=== PATIENT | male | born 1960 | race Caucasian/White ===

== ENCOUNTER 2016-10-23 15:36 | Inpatient (IN) | payer OTHER ==
[~2016-10-23] VITALS: Ht 182.9 cm; Wt 81.0 kg
[~2016-10-23 15:36] MED LIST: 1-ME1LIQ PO; ABIL5TAB6 PO; ACET325 PO; ARIP1TAB16 PO; ASPI81TA11 PO; ATOR10 PO; CLON.2 PO; D 101000 PO; DEPA500T3 PO; HYDR25TA35 PO; LEVE250 PO; LEXA20TA PO; METO50CR PO; NUED20CA PO; PERC5TAB12 PO; SILV400T TOP; TAMS0.4C67 PO; TRAZ50TA4 PO; XANA1TAB6 PO
[2016-10-23 16:09] VITALS: RESP 20
[2016-10-23 16:12] VITALS: BP 153/100; PULSE 76; RESP 20; O2SAT 92
[2016-10-23] MEDS ORDERED: SODIUM CHLOR 0.9% 1000 ML INJ 1,000 ML IV SCH ×2 (16:12→19:30)
[2016-10-23] MEDS ORDERED: SODIUM CHLORIDE 0.9% FLUSH 10 ML FLUSH IV FLUSH PRN ×2 (16:15→19:15)
--- NOTE | 2016-10-23 16:30 | PD ---
HPI Chief Complaint: Abnormal Results Time Seen by Provider: 16:09 Travel History International Travel<30 days: No Contact w/Intl Traveler<30days: No Traveled to known affect area: No History of Present Illness HPI Patient is a 56-year-old male who is brought to the emergency room by [facility] for abnormal labs. Patient is alert to person and time, not place. Patient reports that he is feeling fine, patient with no complaints. It appears that patient's renal function was elevated be some labs from today, BUN/creatinine: 65/4.3. patients baseline bun/cr 20/1.62 (from 12/22/15) PFSH Past Medical History Arthritis: No Asthma: No Autoimmune Disease: No Anxiety: Yes Depression: Yes Cancer: No Chemotherapy: No Chest Pain: No Congestive Heart Failure: No COPD: Yes Cerebrovascular Accident: Yes (stroke x 2 HEMHORRAGIC) Diminished Hearing: No Endocrine: No GERD: No Genitourinary: Yes (BPH ) Hiatal Hernia: No Hypertension: Yes Immune Disorder: No Implanted Vascular Access Dvce: Yes Kidney Stones: No Musculoskeletal: No Neurologic: Yes Psychiatric: Yes Reproductive: No Respiratory: No Immunizations Current: Yes Migraines: No Myocardial Infarction: Yes (2006) Radiation Therapy: No Renal Failure: No Seizures: Yes Sickle Cell Disease: No Sleep Apnea: Yes Past Surgical History Abdominal Surgery: No AICD: No Arteriovenous Shunt: No Body Medical Devices: 2 pins left thumb Cardiac Surgery: No Ear Surgery: No Endocrine Surgery: No Eye Surgery: No Genitourinary Surgery: No Gynecologic Surgery: No Insulin Pump: No Joint Replacement: No Oral Surgery: No Pacemaker: No Thoracic Surgery: No Other Surgery: Yes (right hand ) Social History Alcohol Use: No (Has used in the past. ) Tobacco Use: Yes (3/4 PPD) Substance Use: No Allergies-Medications (Allergen,Severity, Reaction): Coded Allergies: No Known Allergies (Unverified , 10/23/16) Reported Meds & Prescriptions Reported Meds & Active Scripts Active Reported Zolpidem (Zolpidem Tartrate) 10 Mg Tab 10 Mg PO HS Trazodone (Trazodone HCl) 50 Mg Tab 50 Mg PO HS Tamsulosin (Tamsulosin HCl) 0.4 Mg Cap 0.4 Mg PO HS Pepto-Bismol Liq (Bismuth Subsalicylate) 262 Mg/15 Ml Susp 30 Ml PO Q8HR PRN Do not exceed 8 doses (240 mL or 16 tbsp) in 24 hours. Percocet (Oxycodone-Acetaminophen) 5-325 mg Tab 1 Tab PO Q6H PRN Nuedexta 20-10 mg (Dextromethorphan HBr-Quinidine) 1 Cap Cap 1 Cap PO BID Metoprolol Tartrate 50 Mg Tab 50 Mg PO BID Lexapro (Escitalopram Oxalate) 20 Mg Tab 20 Mg PO DAILY Keppra (Levetiracetam) 750 Mg Tab 750 Mg PO Q12HR Hydralazine HCl 25 Mg Tablet 25 Mg PO TID Depakote DR (Divalproex Sodium) 500 Mg Tabdr 500 Mg PO Q12HR Clonidine (Clonidine HCl) 0.2 Mg Tab 0.2 Mg PO TID Vitamin D3 (Cholecalciferol) 1,000 Unit Tab 1,000 Units PO DAILY Benadryl Allergy (Diphenhydramine HCl) 25 Mg Tablet 50 Mg PO Q6HR PRN Aspir-81 (Aspirin) 81 Mg Tabdr 81 Mg PO DAILY Amlodipine (Amlodipine Besylate) 10 Mg Tab 10 Mg PO DAILY Alprazolam 0.5 Mg Tab 0.5 Mg PO Q6H PRN Abilify (Aripiprazole) 5 Mg Tablet 5 Mg PO DAILY Mapap (Acetaminophen) 325 Mg Tab 325 Mg PO Q4HR PRN Review of Systems General / Constitutional: No: Fever Eyes: No: Visual changes HENT: No: Headaches Cardiovascular: No: Chest Pain or Discomfort Respiratory: No: Shortness of Breath Gastrointestinal: No: Abdominal Pain Genitourinary: No: Dysuria Musculoskeletal: No: Pain Skin: No Rash Neurologic: No: Weakness Psychiatric: No: Depression Endocrine: No: Polydipsia Hematologic/Lymphatic: No: Easy Bruising Physical Exam Narrative GENERAL: nad, nontoxic SKIN: Focused skin assessment warm/dry. HEAD: Atraumatic. Normocephalic. EYES: Pupils equal and round. No scleral icterus. No injection or drainage. ENT: No nasal bleeding or discharge. Mucous membranes pink and moist. NECK: Trachea midline. No JVD. CARDIOVASCULAR: Regular rate and rhythm. No murmur appreciated. RESPIRATORY: No accessory muscle use. Clear to auscultation. Breath sounds equal bilaterally. GASTROINTESTINAL: Abdomen soft, non-tender, nondistended. Hepatic and splenic margins not palpable. MUSCULOSKELETAL: No obvious deformities. No clubbing. No cyanosis. No edema. NEUROLOGICAL: Awake and alert to person/time. No obvious cranial nerve deficits. Motor grossly within normal limits. Normal speech. PSYCHIATRIC: Appropriate mood and affect; insight and judgment normal. Data Data Last Documented VS Vital Signs Date Time Temp Pulse Resp B/P Pulse Ox O2 Delivery O2 Flow Rate FiO2 10/23/16 17:47 67 17 168/102 92 Nasal Cannula 2 Orders Complete Blood Count With Diff (10/23/16 16:12) Comprehensive Metabolic Panel (10/23/16 16:12) Prothrombin Time / Inr (Pt) (10/23/16 16:12) Act Partial Throm Time (Ptt) (10/23/16 16:12) Urinalysis - C+S If Indicated (10/23/16 16:12) Iv Access Insert/Monitor (10/23/16 16:12) Sodium Chlor 0.9% 1000 Ml Inj (Ns 1000 M (10/23/16 16:12) Sodium Chloride 0.9% Flush (Ns Flush) (10/23/16 16:15) Us Kidney/Renal/Bladder (10/23/16 ) Labs Laboratory Tests Test 10/23/16 16:25 White Blood Count 8.7 TH/MM3 Red Blood Count 3.89 MIL/MM3 Hemoglobin 11.9 GM/DL Hematocrit 36.2 % Mean Corpuscular Volume 93.0 FL Mean Corpuscular Hemoglobin 30.6 PG Mean Corpuscular Hemoglobin 32.9 % Concent Red Cell Distribution Width 16.4 % Platelet Count 114 TH/MM3 Mean Platelet Volume 8.4 FL Neutrophils (%) (Auto) 70.7 % Lymphocytes (%) (Auto) 15.2 % Monocytes (%) (Auto) 12.9 % Eosinophils (%) (Auto) 0.8 % Basophils (%) (Auto) 0.4 % Neutrophils # (Auto) 6.2 TH/MM3 Lymphocytes # (Auto) 1.3 TH/MM3 Monocytes # (Auto) 1.1 TH/MM3 Eosinophils # (Auto) 0.1 TH/MM3 Basophils # (Auto) 0.0 TH/MM3 CBC Comment DIFF FINAL Differential Comment Prothrombin Time 12.4 SEC Prothromb Time International 1.1 RATIO Ratio Activated Partial 30.3 SEC Thromboplast Time Urine Color YELLOW Urine Turbidity CLEAR Urine pH 5.0 Urine Specific [place] 1.015 Urine Protein 30 mg/dL Urine Glucose (UA) NEG mg/dL Urine Ketones NEG mg/dL Urine Occult Blood SMALL Urine Nitrite NEG Urine Bilirubin NEG Urine Urobilinogen LESS THAN 2.0 MG/DL Urine Leukocyte Esterase NEG Urine WBC 2 /hpf Urine Squamous Epithelial <1 /hpf Cells Microscopic Urinalysis Comment CULT NOT INDICATED Sodium Level 144 MEQ/L Potassium Level 4.2 MEQ/L Chloride Level 107 MEQ/L Carbon Dioxide Level 27.5 MEQ/L Anion Gap 10 MEQ/L Blood Urea Nitrogen 64 MG/DL Creatinine 3.56 MG/DL Estimat Glomerular Filtration 18 ML/MIN Rate Random Glucose 105 MG/DL Calcium Level 8.7 MG/DL Total Bilirubin 0.4 MG/DL Aspartate Amino Transf 108 U/L (AST/SGOT) Alanine Aminotransferase 46 U/L (ALT/SGPT) Alkaline Phosphatase 62 U/L Total Protein 7.8 GM/DL Albumin 3.4 GM/DL MDM Medical Decision Making Medical Screen Exam Complete: Yes Emergency Medical Condition: Yes Interpretation(s) Vital Signs Date Time Temp Pulse Resp B/P Pulse Ox O2 Delivery O2 Flow Rate FiO2 10/23/16 16:12 76 20 153/100 92 Room Air 10/23/16 16:12 82 76 10/23/16 16:09 20 Differential Diagnosis Differential includes renal failure, electrolyte abnormality, uti Narrative Course Patient is a 56 year old male who presents to the emergency room from [facility] for abnormal lab work. patient had lab work drawn today: BUN/CR 65/4.3, BUN/CR from 12/22/15: 21/1.62 plan to recheck labs and administer IVF CBC & BMP Diagram 10/23/16 16:25 bun/cr: 64/3.56, patient with arf, will require admission case reviewed with dr. carson who accepts pt to service Diagnosis Primary Impression: Renal failure Admitting Information Admitting Physician Requests: Admit Nel Shirley DO Oct 23, 2016 16:30
[2016-10-23] MEDS ORDERED: MAPA325T PO (16:46)
[2016-10-23] MEDS ORDERED: CLON0.2T PO (16:58)
[2016-10-23] MEDS ORDERED: PERC5TAB12 PO (16:58)
[2016-10-23] MEDS ORDERED: ASPI81TA81 PO (16:58)
[2016-10-23] MEDS ORDERED: ALPR0.5T3 PO (16:58)
[2016-10-23] MEDS ORDERED: NUED20CA PO (16:58)
[2016-10-23] MEDS ORDERED: KEPP750T PO (16:58)
[2016-10-23] MEDS ORDERED: DEPA500T PO (16:58)
[2016-10-23] MEDS ORDERED: PEPT262S PO (16:58)
[2016-10-23] MEDS ORDERED: TRAZ50TA12 PO (16:58)
[2016-10-23] MEDS ORDERED: ABIL5TAB7 PO (16:58)
[2016-10-23] MEDS ORDERED: AMLO10TA2 PO (16:58)
[2016-10-23] MEDS ORDERED: LEXA20TA PO (16:58)
[2016-10-23] MEDS ORDERED: ZOLP10TA3 PO (16:58)
[2016-10-23] MEDS ORDERED: METO50TA PO (16:58)
[2016-10-23] MEDS ORDERED: BENA25TA6 PO (16:58)
[2016-10-23] MEDS ORDERED: TAMS0.4C4 PO (16:58)
[2016-10-23] MEDS ORDERED: HYDR-3799 PO (16:58)
[2016-10-23] MEDS ORDERED: VITA100064 PO (16:58)
[2016-10-23 17:19] LABS: AUTOMATED NEUTROPHIL # 6.2 TH/MM3 (1.8-7.7); BASOPHIL % 0.4 % (0.0-2.0); EOSINOPHIL # 0.1 TH/MM3 (0-0.4); EOSINOPHIL % 0.8 % (0.0-4.0); HEMATOCRIT 36.2 % (39.0-51.0); HEMO FLAGS DIFF FINAL; LYMPH % 15.2 % (9.0-44.0); LYMPHOCYTE # 1.3 TH/MM3 (1.0-4.8); MEAN CORPUSCULAR HEMOGLOBIN 30.6 PG (27.0-34.0); MEAN CORPUSCULAR HGB CONC 32.9 % (32.0-36.0); MONO % 12.9 % (0.0-8.0); NEUT % 70.7 % (16.0-70.0); PLATELET COUNT 114 TH/MM3 (150-450); RED BLOOD COUNT 3.89 MIL/MM3 (4.50-5.90); RED CELL DISTRIBUTION WIDTH 16.4 % (11.6-17.2); WHITE BLOOD COUNT 8.7 TH/MM3 (4.0-11.0)
[2016-10-23 17:20] LABS: BLOOD, URINE SMALL (NEG); COMMENT (UR) CULT NOT INDICATED; CULTURE IF INDICATED CULT NOT INDICATED; GLUCOSE,URINE NEG (NEG); KETONE, URINE NEG (NEG); NITRITE,URINE NEG (NEG); SQUAMOUS EPITHELIAL CELL URINE <1 /hpf (0-5); URINE COLOR YELLOW (YELLW/STRAW)
[2016-10-23 17:31] LABS: ANION GAP 10 MEQ/L (5-15); AST (GOT) 108 U/L (15-37); BICARBONATE 27.5 MEQ/L (21.0-32.0); BLOOD UREA NITROGEN 64 MG/DL (7-18); CHLORIDE 107 MEQ/L (98-107); GLOMERULAR FILTRATION RATE 18 ML/MIN (>89); POTASSIUM 4.2 MEQ/L (3.5-5.1); SODIUM (NA) 144 MEQ/L (136-145)
[2016-10-23 17:35] LABS: ALKALINE PHOSPHATASE 62 U/L (45-117); ALT (GPT) 46 U/L (12-78); TOTAL BILIRUBIN ADULT 0.4 MG/DL (0.2-1.0)
[2016-10-23 17:47] VITALS: BP 168/102; PULSE 67; RESP 17; O2SAT 92
[2016-10-23 17:47] LABS: APTT (PATIENT) 30.3 SEC (24.3-30.1); INTERNATIONAL NORMALIZED RATIO 1.1 RATIO; PROTHROMBIN TIME - PATIENT 12.4 SEC (9.8-11.6)
--- NOTE | 2016-10-23 18:35 | RADRPT ---
EXAM DATE/TIME: 10/23/2016 17:44 [place] COMPARISON: No previous studies available for comparison. INDICATIONS : Abnormal lab values. MEDICAL HISTORY : Chronic obstructive pulmonary disease. Hypertension. Benign prostatic hyperplasia, (BPH) Cerebrovascu lar accident. Myocardial infarction. SURGICAL HISTORY : Pins in right thumb. ENCOUNTER: Initial ACUITY: 1 day PAIN SCORE: Nonresponsive. LOCATION: Bilateral flank MEASUREMENTS: RIGHT KIDNEY: 11.0 x 4.0 x 6.0 cm LEFT KIDNEY: 10.1 x 5.4 x 6.9 cm FINDINGS: There is no hydronephrosis. There is a solid mass in the right lower pole kidney measures 4.5 cm in s ize with separate tiny 9 mm cyst. There is a simple cyst in the left kidney measures 3.6 cm at upper pole. No definite stone is identified for technique. The bladder appears distended. CONCLUSION: Solid mass in the right kidney and further characterization with MRI examination with intravenous contrast is recommended. Rosa Pete MD on October 23, 2016 at 18:31 Board Certified Radiologist. This report was verified electronically.
--- NOTE | 2016-10-23 19:13 | HHI.HP ---
[facility]ician Xavier Ahuja MD Admission Diagnosis Acute renal failure Diagnoses: (1) LINDA (acute kidney injury) Diagnosis: Principal (2) Renal mass Diagnosis: Principal (3) Thrombocytopenia Diagnosis: Principal (4) HTN (hypertension) Diagnosis: Principal (5) Seizure disorder Diagnosis: Principal (6) DNR (do not resuscitate) Diagnosis: Principal Travel History International Travel<30 Days: No Contact w/Intl Traveler <30 Da: No Traveled to Known Affected Are: No History of Present Illness This is a 56-year-old DNR male with PMH of Anxiety, Depression, COPD, h/o Hemorrhagic CVA, BPH and Tobacco Abuse who was sent to the ER from [facility] for elevated BUN/Creatinine. Pt currently without complaints. Labs w/ Creatinine 4.3, previously 1.62 on 12/22/15. Currently Creatinine 3.56. K+ normal. U/a negative. Platelets 114, previously 155 on 12/22/15. Renal US w/ solid mass in right kidney, recommendation for MRI w/ contrast. Review of Systems Except as stated in HPI: all other systems reviewed are Neg ROS: 14 point review of systems otherwise negative. Past Family Social History Past Medical History PMH: Anxiety, Depression, COPD, h/o Hemorrhagic CVA, BPH and Tobacco Abuse Past Surgical History PAST SURGICAL HISTORY: Right Hand Surgery Allergies: Coded Allergies: No Known Allergies (Unverified , 10/23/16) Family History PAST FAMILY HISTORY: Reviewed. No h/o DM or CAD Social History PAST SOCIAL HISTORY: Negative for alcohol or drugs. Smokes 3/4ppd. Physical Exam Vital Signs Vital Signs Date Time Temp Pulse Resp B/P Pulse Ox O2 Delivery O2 Flow Rate FiO2 10/23/16 17:47 67 17 168/102 92 Nasal Cannula 2 10/23/16 16:12 76 20 153/100 92 Room Air 10/23/16 16:12 82 76 10/23/16 16:09 20 Physical Exam PE: GENERAL: Middle-aged white male in no acute distress. HEENT: PERRLA, EOMI. No scleral icterus or conjunctival pallor. No lid lag or facial droop. CARDIOVASCULAR: Regular rate and rhythm. No obvious murmurs to auscultation. No chest tenderness to palpation. RESPIRATORY: No obvious rhonchi or wheezing. Clear to auscultation. Breath sounds equal bilaterally. GASTROINTESTINAL: Abdomen soft, non-tender, nondistended. BS normal. MUSCULOSKELETAL: Extremities without clubbing, cyanosis, or edema. No obvious deformities. NEUROLOGICAL: Awake, alert and oriented x2. No focal neurologic deficits. Moving both upper and lower extremities spontaneously. Laboratory Laboratory Tests Test 10/23/16 16:25 White Blood Count 8.7 Red Blood Count 3.89 Hemoglobin 11.9 Hematocrit 36.2 Mean Corpuscular Volume 93.0 Mean Corpuscular Hemoglobin 30.6 Mean Corpuscular Hemoglobin 32.9 Concent Red Cell Distribution Width 16.4 Platelet Count 114 Mean Platelet Volume 8.4 Neutrophils (%) (Auto) 70.7 Lymphocytes (%) (Auto) 15.2 Monocytes (%) (Auto) 12.9 Eosinophils (%) (Auto) 0.8 Basophils (%) (Auto) 0.4 Neutrophils # (Auto) 6.2 Lymphocytes # (Auto) 1.3 Monocytes # (Auto) 1.1 Eosinophils # (Auto) 0.1 Basophils # (Auto) 0.0 CBC Comment DIFF FINAL Differential Comment Prothrombin Time 12.4 Prothromb Time International 1.1 Ratio Activated Partial 30.3 Thromboplast Time Urine Color YELLOW Urine Turbidity CLEAR Urine pH 5.0 Urine Specific [place] 1.015 Urine Protein 30 Urine Glucose (UA) NEG Urine Ketones NEG Urine Occult Blood SMALL Urine Nitrite NEG Urine Bilirubin NEG Urine Urobilinogen LESS THAN 2.0 Urine Leukocyte Esterase NEG Urine WBC 2 Urine Squamous Epithelial <1 Cells Microscopic Urinalysis Comment CULT NOT INDICATED Sodium Level 144 Potassium Level 4.2 Chloride Level 107 Carbon Dioxide Level 27.5 Anion Gap 10 Blood Urea Nitrogen 64 Creatinine 3.56 Estimat Glomerular Filtration 18 Rate Random Glucose 105 Calcium Level 8.7 Total Bilirubin 0.4 Aspartate Amino Transf 108 (AST/SGOT) Alanine Aminotransferase 46 (ALT/SGPT) Alkaline Phosphatase 62 Total Protein 7.8 Albumin 3.4 Result Diagram: 10/23/16 1625 10/23/16 1625 Assessment and Plan Problem List: (1) LINDA (acute kidney injury) ICD Code: N17.9 Status: Acute (2) Renal mass ICD Code: N28.89 Status: Acute (3) Thrombocytopenia ICD Code: D69.6 Status: Acute (4) Seizure disorder ICD Code: G40.909 Status: Acute (5) HTN (hypertension) ICD Code: I10 Status: Acute (6) DNR (do not resuscitate) ICD Code: Z66 Status: Chronic Assessment and Plan A/P: 1. LINDA: Sent to ER from Rehab for abnormal BUN/Creatinine, currently creatinine 3.56, previously 1.62 on 12/22/15. Renal US w/ right renal mass w/ recommendation for MRI w/ contrast, images reviewed by me, however in light of acute renal failure, will avoid contrast. U/a negative for UTI. Consult Nephrology for further eval. 2. Renal Mass: Renal US w/ right renal mass as above, images reviewed by me. MRI Abd/Pelvis ordered, currently pending. 3. Thrombocytopenia: Platelets 114, previously 155 on 12/22/15. No active bleeding at this time. Will monitor, repeat labs in a.m. 4. Seizure Disorder: Stable. Resume home Depakote and Keppra. 5. HTN: BP 150-160's. Resume home Metoprolol, Clonidine and Norvasc. Monitor BP. 6. DNR: Code Status confirmed, DNR in chart. 7. DVT Prophylaxis: Pharmacologic contraindication in light of thrombocytopenia and possible renal cell CA w/ high risk for bleed. 8. Social work for d/c planning as needed. 9. Case discussed w/ day physician at length. Physician Certification 2 Midnight Certification Type: Admission for Inpatient Services Order for Inpatient Services The services are ordered in accordance with Medicare regulations or non- Medicare payer requirements, as applicable. In the case of services not specified as inpatient-only, they are appropriately provided as inpatient services in accordance with the 2-midnight benchmark. Estimated LOS (days): 2 days is the estimated time the patient will need to remain in the hospital, assuming treatment plan goals are met and no additional complications. Post-Hospital Plan: Not yet determined Pati Cuevas MD Oct 23, 2016 19:13
[2016-10-23] MEDS ORDERED: ACETAMINOPHEN 325 MG TAB PO PRN (19:15)
[2016-10-23] MEDS ORDERED: LACTULOSE SYRUP 20 GM/30 ML CUP PO PRN (19:15)
[2016-10-23] MEDS ORDERED: MAGNESIUM HYDROXIDE SUSP 30 ML CUP PO PRN (19:15)
[2016-10-23] MEDS ORDERED: SENNOSIDES 8.6 MG TAB PO PRN (19:15)
[2016-10-23] MEDS ORDERED: ONDANSETRON HCL 4 MG/2 ML VIAL IVP PRN (19:15)
[2016-10-23] MEDS ORDERED: BISACODYL 10 MG SUPP RECTAL PRN (19:15)
[2016-10-23 19:22] VITALS: BP 155/95; PULSE 77; RESP 18; O2SAT 98
[2016-10-23] MEDS ORDERED: MORPHINE SULFATE 8 MG/ML INJ IV PUSH PRN (19:30)
[2016-10-23] MEDS: SODIUM CHLOR 0.9% 1000 ML INJ 1,000 ML IV SCH (19:36)
[2016-10-23 20:00] VITALS: BP 144/91; PULSE 77; RESP 19; TEMP 98.1; O2SAT 93
[2016-10-23] MEDS ORDERED: DEXTROMETHORPHAN HBR QUINIDINE PO SCH (21:00)
[2016-10-23] MEDS: SODIUM CHLORIDE 0.9% FLUSH 10 ML FLUSH IV FLUSH SCH (21:00)
[2016-10-23] MEDS: traZODone HCL 50 MG TAB PO SCH (22:26)
[2016-10-23] MEDS: DIVALPROEX DR 500 MG TABEC PO SCH (22:26)
[2016-10-23] MEDS: METOPROLOL TARTRATE 50 MG TAB PO SCH (22:27)
[2016-10-23] MEDS: ZOLPIDEM TARTRATE 10 MG TAB PO SCH (22:27)
[2016-10-23] MEDS: TAMSULOSIN HCL 0.4 MG CAP PO SCH (22:27)
[2016-10-23] MEDS: DOCUSATE SODIUM 50 MG/SENNA 8.6 MG TAB PO SCH (22:27)
[2016-10-23] MEDS: levETIRAcetam 250 MG TAB PO SCH (23:16)
[2016-10-24] VITALS (7 sets, daily range): BP systolic 112–168; BP diastolic 56–113; PULSE 52–82; RESP 18–20; TEMP 96.7–100; O2SAT 88–96
[2016-10-24] MEDS: ALPRAZolam 0.5 MG TAB PO PRN ×2 (01:14→08:47)
[2016-10-24] MEDS: SODIUM CHLOR 0.9% 1000 ML INJ 1,000 ML IV SCH (05:34)
[2016-10-24 06:26] LABS: AUTOMATED NEUTROPHIL # 4.6 TH/MM3 (1.8-7.7); BASOPHIL % 0.7 % (0.0-2.0); EOSINOPHIL # 0.1 TH/MM3 (0-0.4); HEMATOCRIT 36.3 % (39.0-51.0); HEMO FLAGS DIFF FINAL; LYMPH % 18.9 % (9.0-44.0); LYMPHOCYTE # 1.3 TH/MM3 (1.0-4.8); MEAN CELL VOLUME 92.1 FL (80.0-100.0); MEAN CORPUSCULAR HEMOGLOBIN 30.6 PG (27.0-34.0); MEAN CORPUSCULAR HGB CONC 33.2 % (32.0-36.0); MONO % 13.6 % (0.0-8.0); NEUT % 65.8 % (16.0-70.0); PLATELET COUNT 110 TH/MM3 (150-450); RED BLOOD COUNT 3.94 MIL/MM3 (4.50-5.90); RED CELL DISTRIBUTION WIDTH 16.5 % (11.6-17.2); WHITE BLOOD COUNT 6.9 TH/MM3 (4.0-11.0)
[2016-10-24 06:51] LABS: ANION GAP 6 MEQ/L (5-15); AST (GOT) 67 U/L (15-37); BICARBONATE 26.6 MEQ/L (21.0-32.0); BLOOD UREA NITROGEN 47 MG/DL (7-18); CHLORIDE 113 MEQ/L (98-107); GLOMERULAR FILTRATION RATE 29 ML/MIN (>89); POTASSIUM 4.2 MEQ/L (3.5-5.1); SODIUM (NA) 146 MEQ/L (136-145)
[2016-10-24 06:55] LABS: ALKALINE PHOSPHATASE 58 U/L (45-117); ALT (GPT) 39 U/L (12-78); TOTAL BILIRUBIN ADULT 0.3 MG/DL (0.2-1.0)
[2016-10-24] MEDS: ESCITALOPRAM OXALATE 20 MG TAB PO SCH (08:46)
[2016-10-24] MEDS: DIVALPROEX DR 500 MG TABEC PO SCH ×2 (08:46→20:51)
[2016-10-24] MEDS: levETIRAcetam 250 MG TAB PO SCH (08:46)
[2016-10-24] MEDS: DOCUSATE SODIUM 50 MG/SENNA 8.6 MG TAB PO SCH ×2 (08:46→20:51)
[2016-10-24] MEDS: cloNIDine HCL 0.2 MG TAB PO SCH ×3 (08:46→16:58)
[2016-10-24] MEDS: ARIPiprazole 5 MG TAB PO SCH (08:46)
[2016-10-24] MEDS: hydrALAZINE HCL 25 MG TAB PO SCH ×3 (08:46→16:58)
[2016-10-24] MEDS: SODIUM CHLORIDE 0.9% FLUSH 10 ML FLUSH IV FLUSH SCH ×2 (08:47→20:48)
[2016-10-24] MEDS: METOPROLOL TARTRATE 50 MG TAB PO SCH ×2 (08:47→20:50)
--- NOTE | 2016-10-24 12:27 | HHI.PR ---
Subjective Remarks awake, drowsy ? baseline states he uses a cane oriente d to person and place, dysarthric ff commands Objective Vitals Vital Signs Date Time Temp Pulse Resp B/P Pulse Ox O2 Delivery O2 Flow Rate FiO2 10/24/16 12:00 97.5 78 18 141/91 96 10/24/16 09:30 100.0 82 18 112/56 88 10/24/16 08:00 97.3 52 18 159/113 91 10/24/16 00:00 97.9 81 20 134/91 92 10/23/16 20:00 98.1 77 19 144/91 93 10/23/16 19:22 77 18 155/95 98 Nasal Cannula 2 10/23/16 17:47 67 17 168/102 92 Nasal Cannula 2 10/23/16 16:12 76 20 153/100 92 Room Air 10/23/16 16:12 82 76 10/23/16 16:09 20 I/O 10/23/16 10/23/16 10/23/16 10/24/16 10/24/16 10/24/16 07:00 15:00 23:00 07:00 15:00 23:00 Intake Total 333 ml 908 ml Output Total 0 ml Balance 333 ml 908 ml Intake Oral 240 ml IV Total 333 ml 668 ml Output Urine Total 0 ml Result Diagram: 10/24/16 0601 10/24/16 0601 Imaging Last Impressions Renal Ultrasound 10/23/16 0000 Signed Impressions: Service Date/Time: Sunday, October 23, 2016 17:44 - CONCLUSION: Solid mass in the right kidney and further characterization with MRI examination with intravenous contrast is recommended. Rosa Pete MD Objective Remarks drowsy, stated his name, ff commands anicteric mild facial asymmetry, weak gag reflex no nuchal rigdiity lungs- no rales or wheezes regular rhythm abdomen soft, nontender extremities no edema left sided hemiplegia A/P Problem List: (1) LINDA (acute kidney injury) ICD Code: N17.9 Status: Acute (2) Renal mass ICD Code: N28.89 Status: Acute (3) Thrombocytopenia ICD Code: D69.6 Status: Acute (4) Seizure disorder ICD Code: G40.909 Status: Acute (5) HTN (hypertension) ICD Code: I10 Status: Acute (6) DNR (do not resuscitate) ICD Code: Z66 Status: Chronic Assessment and Plan 56 years old male- hisory of CVA with left hemiplegia, [facility] resident sent to ER 1. LINDA: with underlying chronic renal insufficiency=previously 1.62 on . likely acute from poor po intake right renal mass w/ recommendation for MRI w/ contrast however in light of acute renal failure, will avoid contrast. U/a negative for UTI. Hypernatremia change IVF to 1/2 NS- same rated creatinine trending down with IV hydration Consult Nephrology for further eval. Poor po intake - contributing factor CMP in am 2. Renal Mass: Renal US w/ right renal mass as above, images reviewed by me. MRI Abd/Pelvis ordered, currently pending. 3. Thrombocytopenia: Platelets 114, previously 155 on 12/22/15. No active bleeding at this time. Will monitor, 4. Seizure Disorder: S/P CVA left hemiplegia + dysarthria PT/OT/Speech therapy consult. continue on Depakote and Keppra. 5. HTN: BP 150-160's. Resume home Metoprolol, Clonidine and Norvasc. Monitor BP. 6. DNR: Code Status confirmed, DNR in chart. 7. DVT Prophylaxis: Pharmacologic contraindication in light of thrombocytopenia and possible renal cell CA w/ high risk for bleed. 8. Social work for d/c planning as needed. NUtrition consult- calorie count- ? PEG candidate. Speech therapy consulted Srinath/Ana Hayward MD Oct 24, 2016 12:27
[2016-10-24] MEDS: DEXT 5%-NACL 0.45% 1000 ML INJ 1,000 ML IV SCH ×2 (13:08→20:59)
--- NOTE | 2016-10-24 14:16 | PD.CONS ---
HPI Service Nephrology Consult Requested By Dr. ACEVES Reason for Consult Renal insufficiency Primary Care Physician Xavier Ahuja MD History of Present Illness Patient is a 56-year-old white male with history of chronic kidney disease creatinine 1.6, previous CVA, left sided weakness, who was found to have a creatinine of 4.3 in the assisted and subsequently creatinine was 3.5 and currently at 2.3 after hydration patient is tired and lethargic he was found to have a right renal mass which is solid in appearance. Review of Systems Constitutional: COMPLAINS OF: Fatigue Past Family Social History Allergies: Coded Allergies: No Known Allergies (Unverified , 10/23/16) Past Medical History CVA Hypertension Chronic kidney disease Dehydration Left weakness Past Surgical History Right hand Reported Medications Reported Meds & Active Scripts Active Reported Zolpidem (Zolpidem Tartrate) 10 Mg Tab 10 Mg PO HS Trazodone (Trazodone HCl) 50 Mg Tab 50 Mg PO HS Tamsulosin (Tamsulosin HCl) 0.4 Mg Cap 0.4 Mg PO HS Pepto-Bismol Liq (Bismuth Subsalicylate) 262 Mg/15 Ml Susp 30 Ml PO Q8HR PRN Do not exceed 8 doses (240 mL or 16 tbsp) in 24 hours. Percocet (Oxycodone-Acetaminophen) 5-325 mg Tab 1 Tab PO Q6H PRN Nuedexta 20-10 mg (Dextromethorphan HBr-Quinidine) 1 Cap Cap 1 Cap PO BID Metoprolol Tartrate 50 Mg Tab 50 Mg PO BID Lexapro (Escitalopram Oxalate) 20 Mg Tab 20 Mg PO DAILY Keppra (Levetiracetam) 750 Mg Tab 750 Mg PO Q12HR Hydralazine HCl 25 Mg Tablet 25 Mg PO TID Depakote DR (Divalproex Sodium) 500 Mg Tabdr 500 Mg PO Q12HR Clonidine (Clonidine HCl) 0.2 Mg Tab 0.2 Mg PO TID Vitamin D3 (Cholecalciferol) 1,000 Unit Tab 1,000 Units PO DAILY Benadryl Allergy (Diphenhydramine HCl) 25 Mg Tablet 50 Mg PO Q6HR PRN Aspir-81 (Aspirin) 81 Mg Tabdr 81 Mg PO DAILY Amlodipine (Amlodipine Besylate) 10 Mg Tab 10 Mg PO DAILY Alprazolam 0.5 Mg Tab 0.5 Mg PO Q6H PRN Abilify (Aripiprazole) 5 Mg Tablet 5 Mg PO DAILY Mapap (Acetaminophen) 325 Mg Tab 325 Mg PO Q4HR PRN Active Ordered Medications Current Medications Medications (Trade) Dose Ordered Sig/Aroldo Route Start Time Stop Time Status Last Admin (NS Flush) 2 ml UNSCH PRN IV FLUSH 10/23/16 19:15 (NS Flush) 2 ml BID IV FLUSH 10/23/16 21:00 (Zofran Inj) 4 mg Q6H PRN IVP 10/23/16 19:15 (Tylenol) 650 mg Q6H PRN PO 10/23/16 19:15 (Volga 5-325 Mg) 1 tab Q4H PRN PO 10/23/16 19:15 (Morphine Inj) 2 mg Q3H PRN IV PUSH 10/23/16 19:30 (Carolina-Colace) 1 tab BID PO 10/23/16 21:00 10/24/16 08:46 (Milk Of Magnesia Liq) 30 ml Q12H PRN PO 10/23/16 19:15 (Senokot) 17.2 mg Q12H PRN PO 10/23/16 19:15 (Dulcolax Supp) 10 mg DAILY PRN RECTAL 10/23/16 19:15 (Lactulose Liq) 30 ml DAILY PRN PO 10/23/16 19:15 (Xanax) 0.5 mg Q6H PRN PO 10/23/16 19:15 10/24/16 08:47 (Norvasc) 10 mg DAILY PO 10/24/16 09:00 10/24/16 08:46 (Abilify) 5 mg DAILY PO 10/24/16 09:00 10/24/16 08:46 (Catapres) 0.2 mg TID PO 10/24/16 09:00 10/24/16 11:51 (Depakote Dr) 500 mg Q12HR PO 10/23/16 21:00 10/24/16 08:46 (Lexapro) 20 mg DAILY PO 10/24/16 09:00 10/24/16 08:46 (Apresoline) 25 mg TID PO 10/24/16 09:00 10/24/16 11:51 (Keppra) 750 mg Q12HR PO 10/23/16 21:00 10/24/16 08:46 (Lopressor) 50 mg BID PO 10/23/16 21:00 10/24/16 08:47 (Flomax) 0.4 mg HS PO 10/23/16 21:00 10/23/16 22:27 (Desyrel) 50 mg HS PO 10/23/16 21:00 10/23/16 22:26 (Ambien) 10 mg HS PO 10/23/16 21:00 10/23/16 22:27 Patient Own Medication PT OWN MED: (Dextromethorphan HBr-Quinid... BID PO 10/23/16 21:00 Hold (D5W-1/2 NS 1000 ml Inj) 1,000 ml @ 100 mls/hr Q10H IV 10/24/16 12:30 10/24/16 13:08 Family History Noncontributory Social History Used to smoke and drink Physical Exam Vital Signs Vital Signs Date Time Temp Pulse Resp B/P Pulse Ox O2 Delivery O2 Flow Rate FiO2 10/24/16 12:00 97.5 78 18 141/91 96 10/24/16 09:30 100.0 82 18 112/56 88 10/24/16 08:00 97.3 52 18 159/113 91 10/24/16 00:00 97.9 81 20 134/91 92 10/23/16 20:00 98.1 77 19 144/91 93 10/23/16 19:22 77 18 155/95 98 Nasal Cannula 2 10/23/16 17:47 67 17 168/102 92 Nasal Cannula 2 10/23/16 16:12 76 20 153/100 92 Room Air 10/23/16 16:12 82 76 10/23/16 16:09 20 Physical Exam GENERAL: Well-nourished, well-developed patient. SKIN: Warm and dry. HEAD: Normocephalic. EYES: No scleral icterus. No injection or drainage. NECK: Supple, trachea midline. No JVD or lymphadenopathy. CARDIOVASCULAR: Regular rate and rhythm without murmurs, gallops, or rubs. RESPIRATORY: Breath sounds equal bilaterally. No accessory muscle use. GASTROINTESTINAL: Abdomen soft, non-tender, nondistended. EXTREMITIES: No cyanosis, or edema. NEUROLOGICAL: Awake, tired and lethargic Laboratory Laboratory Tests Test 10/23/16 10/24/16 16:25 06:01 White Blood Count 8.7 6.9 Red Blood Count 3.89 3.94 Hemoglobin 11.9 12.1 Hematocrit 36.2 36.3 Mean Corpuscular Volume 93.0 92.1 Mean Corpuscular Hemoglobin 30.6 30.6 Mean Corpuscular Hemoglobin 32.9 33.2 Concent Red Cell Distribution Width 16.4 16.5 Platelet Count 114 110 Mean Platelet Volume 8.4 8.1 Neutrophils (%) (Auto) 70.7 65.8 Lymphocytes (%) (Auto) 15.2 18.9 Monocytes (%) (Auto) 12.9 13.6 Eosinophils (%) (Auto) 0.8 1.0 Basophils (%) (Auto) 0.4 0.7 Neutrophils # (Auto) 6.2 4.6 Lymphocytes # (Auto) 1.3 1.3 Monocytes # (Auto) 1.1 0.9 Eosinophils # (Auto) 0.1 0.1 Basophils # (Auto) 0.0 0.0 CBC Comment DIFF FINAL DIFF FINAL Differential Comment Prothrombin Time 12.4 Prothromb Time International 1.1 Ratio Activated Partial 30.3 Thromboplast Time Urine Color YELLOW Urine Turbidity CLEAR Urine pH 5.0 Urine Specific [place] 1.015 Urine Protein 30 Urine Glucose (UA) NEG Urine Ketones NEG Urine Occult Blood SMALL Urine Nitrite NEG Urine Bilirubin NEG Urine Urobilinogen LESS THAN 2.0 Urine Leukocyte Esterase NEG Urine WBC 2 Urine Squamous Epithelial <1 Cells Microscopic Urinalysis Comment CULT NOT INDICATED Sodium Level 144 146 Potassium Level 4.2 4.2 Chloride Level 107 113 Carbon Dioxide Level 27.5 26.6 Anion Gap 10 6 Blood Urea Nitrogen 64 47 Creatinine 3.56 2.32 Estimat Glomerular Filtration 18 29 Rate Random Glucose 105 80 Calcium Level 8.7 8.5 Total Bilirubin 0.4 0.3 Aspartate Amino Transf 108 67 (AST/SGOT) Alanine Aminotransferase 46 39 (ALT/SGPT) Alkaline Phosphatase 62 58 Total Protein 7.8 7.1 Albumin 3.4 2.9 Result Diagram: 10/24/16 0601 10/24/16 0601 Imaging Last Impressions Renal Ultrasound 10/23/16 0000 Signed Impressions: Service Date/Time: Sunday, October 23, 2016 17:44 - CONCLUSION: Solid mass in the right kidney and further characterization with MRI examination with intravenous contrast is recommended. Rosa Pete MD Assessment and Plan Problem List: (1) LINDA (acute kidney injury) Plan: He is dehydrated prerenal functions continue to improve with hydration continue monitor renal functions I agree with MRI He will need a urological evaluation (2) Neoplasm of right kidney Plan: Appears neoplastic lesion needs urological evaluation (3) HTN (hypertension) Plan: Continue to monitor (4) Thrombocytopenia Plan: Monitor Leonel Joy MD Oct 24, 2016 14:16
[2016-10-24] MEDS: TAMSULOSIN HCL 0.4 MG CAP PO SCH (20:50)
[2016-10-24] MEDS: traZODone HCL 50 MG TAB PO SCH (21:00)
[2016-10-25 04:00] VITALS: BP 164/92; PULSE 56; RESP 20; TEMP 96.7; O2SAT 96
[2016-10-25 07:38] LABS: ALKALINE PHOSPHATASE 51 U/L (45-117); ALT (GPT) 30 U/L (12-78); ANION GAP 7 MEQ/L (5-15); AST (GOT) 37 U/L (15-37); BICARBONATE 27.3 MEQ/L (21.0-32.0); BLOOD UREA NITROGEN 31 MG/DL (7-18); CHLORIDE 113 MEQ/L (98-107); GLOMERULAR FILTRATION RATE 45 ML/MIN (>89); POTASSIUM 3.7 MEQ/L (3.5-5.1); SODIUM (NA) 147 MEQ/L (136-145); TOTAL BILIRUBIN ADULT 0.4 MG/DL (0.2-1.0)
[2016-10-25 08:00] VITALS: BP 142/95; PULSE 59; RESP 18; TEMP 95.5; O2SAT 96
[2016-10-25] MEDS: SODIUM CHLORIDE 0.9% FLUSH 10 ML FLUSH IV FLUSH SCH ×2 (09:00→21:00)
[2016-10-25] MEDS: DEXT 5%-NACL 0.45% 1000 ML INJ 1,000 ML IV SCH ×3 (09:24→22:03)
[2016-10-25] MEDS: METOPROLOL TARTRATE 50 MG TAB PO SCH ×2 (09:25→22:04)
[2016-10-25] MEDS: levETIRAcetam 250 MG TAB PO SCH (09:25)
[2016-10-25] MEDS: hydrALAZINE HCL 25 MG TAB PO SCH ×3 (09:26→17:15)
[2016-10-25] MEDS: DIVALPROEX DR 500 MG TABEC PO SCH (09:26)
[2016-10-25] MEDS: ARIPiprazole 5 MG TAB PO SCH (09:26)
[2016-10-25] MEDS: cloNIDine HCL 0.2 MG TAB PO SCH ×3 (09:26→17:15)
[2016-10-25] MEDS: DOCUSATE SODIUM 50 MG/SENNA 8.6 MG TAB PO SCH ×2 (09:26→22:04)
[2016-10-25] MEDS: ESCITALOPRAM OXALATE 20 MG TAB PO SCH (09:26)
--- NOTE | 2016-10-25 11:01 | HHI.PR ---
Subjective Remarks Sleepy , falling asleep easily. Feels tired. Says she has no appetite and he is not eating. No fever or chills. Denies any pain. No n/v/d/c. Objective Vitals Vital Signs Date Time Temp Pulse Resp B/P Pulse Ox O2 Delivery O2 Flow Rate FiO2 10/25/16 08:00 95.5 59 18 142/95 96 10/25/16 04:00 96.7 56 20 164/92 96 10/24/16 22:00 96.8 54 18 168/98 95 10/24/16 20:00 97.7 53 18 141/85 95 10/24/16 16:00 96.7 64 18 143/88 94 10/24/16 12:00 97.5 78 18 141/91 96 I/O 10/24/16 10/24/16 10/24/16 10/25/16 10/25/16 10/25/16 07:00 15:00 23:00 07:00 15:00 23:00 Intake Total 908 ml 777 ml 753 ml 841 ml Output Total 0 ml Balance 908 ml 777 ml 753 ml 841 ml Intake Oral 240 ml 0 ml IV Total 668 ml 777 ml 753 ml 841 ml Output Urine Total 0 ml # Voids 1 3 # Bowel Movements 0 Result Diagram: 10/24/16 0601 10/25/16 0525 Imaging Last Impressions Renal Ultrasound 10/23/16 0000 Signed Impressions: Service Date/Time: Sunday, October 23, 2016 17:44 - CONCLUSION: Solid mass in the right kidney and further characterization with MRI examination with intravenous contrast is recommended. Rosa Pete MD Objective Remarks GENERAL: 56 yo male, lethargic, sleepy , falling asleep very easily ill appearing in bed. SKIN: Pale. CARDIOVASCULAR: Regular rate and rhythm. RESPIRATORY: No accessory muscle use. Clear to auscultation. Breath sounds equal bilaterally. GASTROINTESTINAL: Abdomen soft, non-tender, nondistended. Hepatic and splenic margins not palpable. MUSCULOSKELETAL: Extremities without clubbing, cyanosis, or edema. No obvious deformities. NEUROLOGICAL: Awake and alert. Falling asleep easily. No obvious cranial nerve deficits. Motor grossly within normal limits. Normal speech. PSYCHIATRIC: Appropriate mood and affect; insight and judgment normal. A/P Problem List: (1) LINDA (acute kidney injury) ICD Code: N17.9 Status: Acute (2) Renal mass ICD Code: N28.89 Status: Acute (3) Thrombocytopenia ICD Code: D69.6 Status: Acute (4) Seizure disorder ICD Code: G40.909 Status: Acute (5) HTN (hypertension) ICD Code: I10 Status: Acute (6) DNR (do not resuscitate) ICD Code: Z66 Status: Chronic Assessment and Plan 56 years old male- hisory of CVA with left hemiplegia, [place] resident sent to ER LINDA: with underlying chronic renal insufficiency=previously 1.62 on 12/22/15. likely acute from poor po intake. Improving. right renal mass w/ recommendation for MRI w/ contrast however in light of acute renal failure, will avoid contrast. U/a negative for UTI. Hypernatremia change IVF to 1/2 NS- same rated creatinine trending down with IV hydration Consult Nephrology for further eval. Poor po intake /decrease appetite - contributing factor. Add megace CMP in am Renal Mass: Renal US w/ right renal mass as above, images reviewed by me. MRI Abd/Pelvis ordered, currently pending. Thrombocytopenia: Platelets 114, previously 155 on 12/22/15. No active bleeding at this time. Will monitor, Seizure Disorder: S/P CVA left hemiplegia + dysarthria PT/OT/Speech therapy consult. continue on Depakote and Keppra. HTN: BP 150-160's. Resume home Metoprolol, Clonidine and Norvasc. Monitor BP. DNR: Code Status confirmed, DNR in chart. DVT Prophylaxis: Pharmacologic contraindication in light of thrombocytopenia and possible renal cell CA w/ high risk for bleed. Case management consulted for d/c planning as needed. Moderate protein calorie malnutrition. Surgical Physician Assistant consult- calorie count- ? PEG candidate, however discussed with the patient he is refusing PEG tube. Check prealbumin. Add megace. Speech therapy consulted for swallow eval as well TEDs/SCDs DC plan pending improvement. Akosua Ozuna MD Oct 25, 2016 11:01
[2016-10-25] MEDS ORDERED: MEGESTROL ACETATE SUSP 400 MG/10 ML CUP PO ONE (11:30)
[2016-10-25 12:00] VITALS: BP 123/89; PULSE 55; RESP 18; TEMP 97.2; O2SAT 94
--- NOTE | 2016-10-25 13:30 | HHI.NPPN ---
Subjective History of Present Illness 56 year old with ARF/CKD/R renal mass Review of Systems General Constitutional: Fatigue Objective Data Data 10/24/16 10/25/16 19:00 07:00 Intake Total 777 ml 1594 ml Balance 777 ml 1594 ml Intake Oral 0 ml IV Total 777 ml 1594 ml # Voids 1 3 # Bowel Movements 0 Vital Signs Date Time Temp Pulse Resp B/P Pulse Ox O2 Delivery O2 Flow Rate FiO2 10/25/16 12:00 97.2 55 18 123/89 94 10/25/16 08:00 95.5 59 18 142/95 96 10/25/16 04:00 96.7 56 20 164/92 96 10/24/16 22:00 96.8 54 18 168/98 95 10/24/16 20:00 97.7 53 18 141/85 95 10/24/16 16:00 96.7 64 18 143/88 94 -: 10/24/16 0601 10/25/16 0525 Physical Exam General Appearance: Well Developed Neck Neck Exam: Neck Supple Pulmonary Resp Exam: Clear Bilaterally, Breath Sounds Equal Cardiology CV Exam: Regular, Good Perfusion Gastrointestinal/Abdomen GI Exam: Soft, Non-Tender Extremeties Extremities Exam: No Edema Assessment/Plan Problem List: (1) LINDA (acute kidney injury) Plan: He improve with hydration continue monitor renal functions I agree with MRI can use contrast as GFR 45 He will need a urological evaluation (2) Neoplasm of right kidney Plan: Appears neoplastic lesion needs urological evaluation (3) HTN (hypertension) Plan: Continue to monitor (4) Thrombocytopenia Plan: Monitor Leonel Joy MD Oct 25, 2016 13:29
[2016-10-25] MEDS ORDERED: GADODIAMIDE PF 287 MG/ML 5 ML VIAL (for RAD MRI) IV ONE (16:26)
[2016-10-25] MEDS ORDERED: GADODIAMIDE PF 287 MG/ML 10 ML VIAL (for RAD MRI) IV ONE (17:24)
--- NOTE | 2016-10-25 17:50 | RADRPT ---
EXAM DATE/TIME: 10/25/2016 16:16 [facility] COMPARISON: US KIDNEY/RENAL/BLADDER, May 08, 2015, 20:09. US KIDNEY/RENAL/BLADDER, October 23, 2016, 17:44. INDICATIONS : Mass. CONTRAST: 8 cc Omniscan (gadodiamide) IV MEDICAL HISTORY : Myocardial infarction. Chronic obstructive pulmonary disease. Benign prostatic hyperplasia, (BPH) HTN . CVA. SURGICAL HISTORY : Right thumb. ENCOUNTER: Subsequent ACUITY: 2 day PAIN SCORE: 5/10 LOCATION: Abdomen. TECHNIQUE: Multiplanar, multisequence magnetic resonance imaging of the abdomen was performed without and with i ntravenous contrast. FINDINGS: LIVER: Normal size with normal signal intensity. No lesion is identified. Portal vein is within normal limi ts. BILIARY: There is no intra- or extra-hepatic biliary ductal dilatation. Gallbladder contains no stones. SPLEEN: Within normal limits. PANCREAS: Within normal limits. ADRENALS: Within normal limits. KIDNEYS: In the lower right kidney there is a heterogeneous mass measuring 3.4 x 4.3 cm.. The mass shows defin ite enhancement along its medial margin. Renal cell carcinoma be the primary consideration. There is a large cyst in the upper anterior aspect of the left kidney. There is no evidence of hydronephrosis. I don't see any renal vein invasion or significant retroperitoneal adenopathy. OTHER: Aorta is nonaneurysmal. There is no lymphadenopathy. CONCLUSION: Heterogeneous mass lower pole right kidney likely renal cell carcinoma. Large cyst in the left kidney . Solid organs are unremarkable. Alberto Augustin MD on October 25, 2016 at 17:46 Board Certified Radiologist. This report was verified electronically.
[2016-10-25 20:17] VITALS: BP 132/84; PULSE 52; RESP 17; TEMP 96.7; O2SAT 96
[2016-10-25] MEDS: TAMSULOSIN HCL 0.4 MG CAP PO SCH (22:04)
[2016-10-26 00:14] VITALS: BP 132/82; PULSE 52; RESP 17; TEMP 97; O2SAT 96
[2016-10-26 07:21] LABS: AUTOMATED NEUTROPHIL # 2.7 TH/MM3 (1.8-7.7); BASOPHIL % 0.5 % (0.0-2.0); EOSINOPHIL # 0.2 TH/MM3 (0-0.4); EOSINOPHIL % 3.6 % (0.0-4.0); HEMO FLAGS DIFF FINAL; LYMPH % 28.4 % (9.0-44.0); LYMPHOCYTE # 1.4 TH/MM3 (1.0-4.8); MEAN CORPUSCULAR HEMOGLOBIN 30.6 PG (27.0-34.0); MEAN CORPUSCULAR HGB CONC 33.6 % (32.0-36.0); MONO % 13.8 % (0.0-8.0); NEUT % 53.7 % (16.0-70.0); PLATELET COUNT 141 TH/MM3 (150-450); RED BLOOD COUNT 3.84 MIL/MM3 (4.50-5.90); RED CELL DISTRIBUTION WIDTH 16.3 % (11.6-17.2)
[2016-10-26 07:45] LABS: BICARBONATE 25.6 MEQ/L (21.0-32.0); POTASSIUM 3.4 MEQ/L (3.5-5.1)
[2016-10-26 08:00] VITALS: BP 190/106; PULSE 66; RESP 20; TEMP 98; O2SAT 99
[2016-10-26] MEDS: METOPROLOL TARTRATE 50 MG TAB PO SCH ×2 (08:06→21:40)
[2016-10-26] MEDS: ARIPiprazole 5 MG TAB PO SCH (08:12)
[2016-10-26] MEDS: cloNIDine HCL 0.2 MG TAB PO SCH ×3 (08:12→18:29)
[2016-10-26] MEDS: DEXT 5%-NACL 0.45% 1000 ML INJ 1,000 ML IV SCH (08:12)
[2016-10-26] MEDS: DIVALPROEX DR 500 MG TABEC PO SCH ×2 (08:12→21:40)
[2016-10-26] MEDS: ESCITALOPRAM OXALATE 20 MG TAB PO SCH (08:13)
[2016-10-26] MEDS: MEGESTROL ACETATE SUSP 400 MG/10 ML CUP PO SCH (08:13)
[2016-10-26] MEDS: SODIUM CHLORIDE 0.9% FLUSH 10 ML FLUSH IV FLUSH SCH ×2 (08:13→20:08)
[2016-10-26] MEDS: levETIRAcetam 250 MG TAB PO SCH ×2 (08:13→21:40)
[2016-10-26] MEDS: DOCUSATE SODIUM 50 MG/SENNA 8.6 MG TAB PO SCH ×2 (08:13→21:40)
[2016-10-26] MEDS: hydrALAZINE HCL 25 MG TAB PO SCH ×3 (08:13→18:30)
--- NOTE | 2016-10-26 11:45 | PD.CONS ---
[facility] Service Urology Consult Requested By Primary Care Physician Xavier Ahuja MD Diagnosis: (1) LINDA (acute kidney injury) ICD Code: N17.9 (2) Renal mass ICD Code: N28.89 (3) Thrombocytopenia ICD Code: D69.6 (4) Seizure disorder ICD Code: G40.909 (5) HTN (hypertension) ICD Code: I10 (6) DNR (do not resuscitate) ICD Code: Z66 History of Present Illness 56-year-old male presents in acute renal failure. Creatinine on admission was 3.5 and is currently down to 1.9 after hydration. Patient missed to having a CVA approximately one year ago affecting his left side. He states that he was living with his mother until her recent . He is currently living in a long -term rehabilitation facility. He currently wears a diaper and voids into his diaper throughout the day and night. He is unable to ambulate due to his stroke affecting his left side. He states he has a long history of hypertension and currently smokes. He does note occasional urinary tract infections. He states he does get the sensation to void, however, at times he is unable to control his voiding. He currently has a condom catheter in place. Renal ultrasound was performed on admission demonstrating a renal mass and follow-up MRI confirmed presence of a 4 x 5 cm right lower pole renal mass concerning for malignancy. Review of Systems ROS Limitations: Clinical Condition Constitutional: DENIES: Diaphoretic episodes Endocrine: DENIES: Heat/cold intolerance Eyes: DENIES: Blurred vision Ears, nose, mouth, throat: DENIES: Tinnitus Respiratory: DENIES: Apneas Cardiovascular: DENIES: Chest pain Gastrointestinal: DENIES: Abdominal pain Musculoskeletal: DENIES: Joint pain Integumentary: DENIES: Abnormal pigmentation Hematologic/lymphatic: DENIES: Bruising Immunologic/allergic: DENIES: Eczema Neurologic: COMPLAINS OF: Abnormal gait Past Family Social History Past Medical History Hypertension Left CVA Right renal mass Acute renal failure History of urinary tract infections Seizure disorder Past Surgical History Denies Allergies: Coded Allergies: No Known Allergies (Unverified , 10/23/16) Family History Mother with throat cancer He denies a family history of prostate cancer Social History Patient drinks socially And presently smoke cigarettes Physical Exam Vital Signs Date Time Temp Pulse Resp B/P Pulse Ox O2 Delivery O2 Flow Rate FiO2 10/26/16 08:00 98.0 66 20 190/106 99 10/26/16 00:14 97.0 52 17 132/82 96 10/25/16 20:17 96.7 52 17 132/84 96 10/25/16 12:00 97.2 55 18 123/89 94 Physical Exam GENERAL: This is a well-nourished, well-developed patient, in no apparent distress. SKIN: No rashes, ecchymoses or lesions. Cool and dry. HEAD: Atraumatic. Normocephalic. No temporal or scalp tenderness. EYES: Pupils equal round and reactive. Extraocular motions intact. No scleral icterus. No injection or drainage. ENT: Nose without bleeding, purulent drainage or septal hematoma. Throat without erythema, tonsillar hypertrophy or exudate. Uvula midline. Airway patent. NECK: Trachea midline. No JVD or lymphadenopathy. Supple, nontender, no meningeal signs. CARDIOVASCULAR: Regular rate and rhythm without murmurs, gallops, or rubs. RESPIRATORY: Clear to auscultation. Breath sounds equal bilaterally. No wheezes , rales, or rhonchi. GASTROINTESTINAL: Abdomen soft, non-tender, nondistended. No hepato-splenomegaly , or palpable masses. No guarding. GENITOURINARY: Normal phallus with testes descended MUSCULOSKELETAL: Extremities without clubbing, cyanosis, or edema. No joint tenderness, effusion, or edema noted. No calf tenderness. Negative Homans sign bilaterally. NEUROLOGICAL: Awake and alert. Cranial nerves II through XII intact. Motor and sensory grossly within normal limits. Five out of 5 muscle strength in all muscle groups. Normal speech. Laboratory Tests Test 10/26/16 05:45 White Blood Count 5.0 Red Blood Count 3.84 Hemoglobin 11.7 Hematocrit 35.0 Mean Corpuscular Volume 91.0 Mean Corpuscular Hemoglobin 30.6 Mean Corpuscular Hemoglobin 33.6 Concent Red Cell Distribution Width 16.3 Platelet Count 141 Mean Platelet Volume 7.9 Neutrophils (%) (Auto) 53.7 Lymphocytes (%) (Auto) 28.4 Monocytes (%) (Auto) 13.8 Eosinophils (%) (Auto) 3.6 Basophils (%) (Auto) 0.5 Neutrophils # (Auto) 2.7 Lymphocytes # (Auto) 1.4 Monocytes # (Auto) 0.7 Eosinophils # (Auto) 0.2 Basophils # (Auto) 0.0 CBC Comment DIFF FINAL Differential Comment Sodium Level 145 Potassium Level 3.4 Chloride Level 111 Carbon Dioxide Level 25.6 Anion Gap 8 Blood Urea Nitrogen 20 Creatinine 1.29 Estimat Glomerular Filtration 58 Rate Random Glucose 92 Calcium Level 8.4 Result Diagram: 10/26/16 0545 10/26/16 0545 Imaging Last Impressions Abdomen MRI 10/25/16 0000 Signed Impressions: Service Date/Time: Tuesday, October 25, 2016 16:16 - CONCLUSION: Heterogeneous mass lower pole right kidney likely renal cell carcinoma. Large cyst in the left kidney. Solid organs are unremarkable. Alberto Augustin MD Renal Ultrasound 10/23/16 0000 Signed Impressions: Service Date/Time: Sunday, October 23, 2016 17:44 - CONCLUSION: Solid mass in the right kidney and further characterization with MRI examination with intravenous contrast is recommended. Rosa Pete MD Assessment and Plan Assessment and Plan 56-year-old male admitted with acute renal failure. Creatinine down to 1.29 and has returned to baseline. 4 x 5 cm right lower pole renal mass concerning for renal cell carcinoma. Continue Flomax. History of thrombocytopenia. Patient in the future will need a right lower pole nephrectomy and will need medical clearance preoperatively. This will be done on an outpatient basis. Thank you for the consult allow me to precipitate in the care of this patient. Brian Jack DO Oct 26, 2016 11:45
[2016-10-26 12:00] VITALS: BP 113/69; PULSE 62; RESP 18; TEMP 96.8; O2SAT 98
--- NOTE | 2016-10-26 13:16 | HHI.PR ---
Subjective Remarks Patient is in bed he is more alert and oriented today. He was able to eat his breakfast today. Appetite is coming back. No nausea, vomiting, diarrhea or constipation. Had a normal bowel movement in the morning. He has no pain at this time. No fever or chills. Objective Vitals Vital Signs Date Time Temp Pulse Resp B/P Pulse Ox O2 Delivery O2 Flow Rate FiO2 10/26/16 12:00 96.8 62 18 113/69 98 10/26/16 08:00 98.0 66 20 190/106 99 10/26/16 00:14 97.0 52 17 132/82 96 10/25/16 20:17 96.7 52 17 132/84 96 I/O 10/25/16 10/25/16 10/25/16 10/26/16 10/26/16 10/26/16 07:00 15:00 23:00 07:00 15:00 23:00 Intake Total 841 ml 1100 ml 1015 ml 1079 ml Output Total 1200 ml 1100 ml Balance 841 ml 1100 ml -185 ml -21 ml Intake Oral 240 ml 480 ml 360 ml IV Total 841 ml 860 ml 535 ml 719 ml Output Urine Total 1200 ml 1000 ml Drainage Total 100 ml # Voids 3 # Bowel Movements 1 1 Result Diagram: 10/26/16 0545 10/26/16 0545 Imaging Last Impressions Abdomen MRI 10/25/16 0000 Signed Impressions: Service Date/Time: Tuesday, October 25, 2016 16:16 - CONCLUSION: Heterogeneous mass lower pole right kidney likely renal cell carcinoma. Large cyst in the left kidney. Solid organs are unremarkable. Alberto Augustin MD Renal Ultrasound 10/23/16 0000 Signed Impressions: Service Date/Time: Sunday, October 23, 2016 17:44 - CONCLUSION: Solid mass in the right kidney and further characterization with MRI examination with intravenous contrast is recommended. Rosa Pete MD Objective Remarks GENERAL: 56 yo male, more alert and oriented today, in bed appears in not acute distress SKIN: Pale. CARDIOVASCULAR: Regular rate and rhythm. RESPIRATORY: No accessory muscle use. Clear to auscultation. Breath sounds equal bilaterally. GASTROINTESTINAL: Abdomen soft, non-tender, nondistended. MUSCULOSKELETAL: Extremities without clubbing, cyanosis, or edema. No obvious deformities. NEUROLOGICAL: Awake and alert. Falling asleep easily. No obvious cranial nerve deficits. Motor grossly within normal limits. Normal speech. PSYCHIATRIC: Appropriate mood and affect; insight and judgment normal. A/P Problem List: (1) LINDA (acute kidney injury) ICD Code: N17.9 Status: Acute (2) Renal mass ICD Code: N28.89 Status: Acute (3) Thrombocytopenia ICD Code: D69.6 Status: Acute (4) Seizure disorder ICD Code: G40.909 Status: Acute (5) HTN (hypertension) ICD Code: I10 Status: Acute (6) DNR (do not resuscitate) ICD Code: Z66 Status: Chronic Assessment and Plan 56 years old male- hisory of CVA with left hemiplegia, [place] resident sent to ER LINDA: with underlying chronic renal insufficiency=previously 1.62 on 12/22/15. likely acute from poor po intake. Improving. right renal mass w/ recommendation for MRI w/ contrast however in light of acute renal failure, will avoid contrast. U/a negative for UTI. Renal Mass: Renal US w/ right renal mass as above, images reviewed by me. MRI Abd/Pelvis with right kidney mass, discussed with the patient An MRI of the abdomen with contrast contrast. Review right upper kidney mass. Urology was consulted. Was seen by Dr. Brian Jack urology. Patient in the future will need a right lower pole nephrectomy and will need medical clearance preoperatively. This will be done on an outpatient basis. Creatinine is back to almost his baseline is 1.29 today. Monitor BMP. Hypernatremia change IVF to 1/2 NS- same rated creatinine trending down with IV hydration Consult Nephrology for further eval. Poor po intake /decrease appetite - contributing factor. Add megace CMP in am Thrombocytopenia: Platelets 114, previously 155 on 12/22/15. No active bleeding at this time. Will monitor, Seizure Disorder: S/P CVA left hemiplegia + dysarthria PT/OT/Speech therapy consult. continue on Depakote and Keppra. HTN: BP 150-160's. Resume home Metoprolol, Clonidine and Norvasc. Monitor BP. DNR: Code Status confirmed, DNR in chart. DVT Prophylaxis: Pharmacologic contraindication in light of thrombocytopenia and possible renal cell CA w/ high risk for bleed. Case management consulted for d/c planning as needed. Moderate protein calorie malnutrition. resolving. He was able to eat all his breakfast today. Greenhouse Assistant consult- calorie count- ? PEG candidate, however discussed with the patient he is refusing PEG tube. Check prealbumin. Continue Megace. Speech therapy consulted for swallow eval as well Physical deconditioning. Consult PT TEDs/SCDs DC plan pending improvement and clearance by consultants. Akosua Ozuna MD Oct 26, 2016 13:16
[2016-10-26] MEDS: ACETAMINOPHEN/HYDROcodone 325 MG/5 MG TAB PO PRN ×2 (13:44→18:30)
[2016-10-26 16:00] VITALS: BP 135/93; PULSE 72; RESP 19; TEMP 97.9; O2SAT 96
--- NOTE | 2016-10-26 16:49 | HHI.NPPN ---
Subjective History of Present Illness 56 year old with ARF/CKD/R renal mass Review of Systems General Constitutional: Fatigue Objective Data Data 10/25/16 10/26/16 19:00 07:00 Intake Total 1100 ml 2094 ml Output Total 2300 ml Balance 1100 ml -206 ml Intake Oral 240 ml 840 ml IV Total 860 ml 1254 ml Output Urine Total 2200 ml Drainage Total 100 ml # Voids 3 # Bowel Movements 1 1 Vital Signs Date Time Temp Pulse Resp B/P Pulse Ox O2 Delivery O2 Flow Rate FiO2 10/26/16 12:00 96.8 62 18 113/69 98 10/26/16 08:00 98.0 66 20 190/106 99 10/26/16 00:14 97.0 52 17 132/82 96 10/25/16 20:17 96.7 52 17 132/84 96 -: 10/26/16 0545 10/26/16 0545 Physical Exam General Appearance: Well Developed Neck Neck Exam: Neck Supple Pulmonary Resp Exam: Clear Bilaterally, Breath Sounds Equal Cardiology CV Exam: Regular, Good Perfusion Gastrointestinal/Abdomen GI Exam: Soft, Non-Tender Extremeties Extremities Exam: No Edema Assessment/Plan Problem List: (1) LINDA (acute kidney injury) Plan: He improve with hydration continue monitor renal functions MRI suggest cancer Urology consulted and will follow as out patient Renal functions improved Nephrology to FU as PRN bases advice to drink water take supplements nepro or Suplena (2) Neoplasm of right kidney Plan: MRI confirmed neoplastic lesion needs surgery once stable (3) HTN (hypertension) Plan: Continue to monitor (4) Thrombocytopenia Plan: Monitor Leonel Joy MD Oct 26, 2016 16:49
[2016-10-26] MEDS: ALPRAZolam 0.5 MG TAB PO PRN (18:29)
[2016-10-26 20:08] VITALS: BP 142/84; PULSE 83; RESP 17; TEMP 99; O2SAT 94
[2016-10-26] MEDS: TAMSULOSIN HCL 0.4 MG CAP PO SCH (21:40)
[2016-10-26] MEDS: ZOLPIDEM TARTRATE 10 MG TAB PO SCH (21:40)
[2016-10-26] MEDS: traZODone HCL 50 MG TAB PO SCH (21:40)
[2016-10-26 23:58] VITALS: BP 140/80; PULSE 80; RESP 18; TEMP 96.8; O2SAT 94
[2016-10-27] MEDS: DEXT 5%-NACL 0.45% 1000 ML INJ 1,000 ML IV SCH ×2 (03:09→10:30)
[2016-10-27 08:00] VITALS: BP 164/96; PULSE 64; RESP 20; TEMP 97.7; O2SAT 98
[2016-10-27] MEDS: SODIUM CHLORIDE 0.9% FLUSH 10 ML FLUSH IV FLUSH SCH (08:44)
[2016-10-27] MEDS: levETIRAcetam 250 MG TAB PO SCH (08:45)
[2016-10-27] MEDS: MEGESTROL ACETATE SUSP 400 MG/10 ML CUP PO SCH (08:45)
[2016-10-27] MEDS: ARIPiprazole 5 MG TAB PO SCH (08:45)
[2016-10-27] MEDS: cloNIDine HCL 0.2 MG TAB PO SCH ×2 (08:46→13:12)
[2016-10-27] MEDS: hydrALAZINE HCL 25 MG TAB PO SCH ×2 (08:46→13:12)
[2016-10-27] MEDS: DIVALPROEX DR 500 MG TABEC PO SCH (08:47)
[2016-10-27] MEDS: METOPROLOL TARTRATE 50 MG TAB PO SCH (08:47)
[2016-10-27] MEDS: ESCITALOPRAM OXALATE 20 MG TAB PO SCH (08:47)
[2016-10-27] MEDS: DOCUSATE SODIUM 50 MG/SENNA 8.6 MG TAB PO SCH (08:47)
[2016-10-27] MEDS ORDERED: MEGE40SU PO (09:08)
[2016-10-27] MEDS ORDERED: SENN1TAB PO (09:08)
[2016-10-27] MEDS ORDERED: ALPR0.5T3 PO (09:08)
[2016-10-27] MEDS ORDERED: PERC5TAB12 PO (09:08)
--- NOTE | 2016-10-27 09:08 | HHI.DS ---
Discharge Summary Admission Date Oct 23, 2016 at 18:03 Discharge Date: Oct 27, 2016 Admitting Diagnosis Acute renal failure (1) LINDA (acute kidney injury) ICD Code: N17.9 Diagnosis: Principal (2) Renal mass ICD Code: N28.89 Diagnosis: Principal (3) Thrombocytopenia ICD Code: D69.6 Diagnosis: Principal (4) Seizure disorder ICD Code: G40.909 Diagnosis: Secondary (5) HTN (hypertension) ICD Code: I10 Diagnosis: Secondary (6) DNR (do not resuscitate) ICD Code: Z66 Diagnosis: Secondary Procedures none Brief History - From Admission This is a 56-year-old DNR male with PMH of Anxiety, Depression, COPD, h/o Hemorrhagic CVA, BPH and Tobacco Abuse who was sent to the ER from [facility] for elevated BUN/Creatinine. Pt currently without complaints. Labs w/ Creatinine 4.3, previously 1.62 on 12/22/15. Currently Creatinine 3.56. K+ normal. U/a negative. Platelets 114, previously 155 on 12/22/15. Renal US w/ solid mass in right kidney, recommendation for MRI w/ contrast. CBC/BMP: 10/26/16 0545 10/26/16 0545 Significant Findings Laboratory Tests Test 10/25/16 10/26/16 05:25 05:45 Sodium Level 147 MEQ/L (136-145) Chloride Level 113 MEQ/L 111 MEQ/L (98-107) (98-107) Blood Urea Nitrogen 31 MG/DL (7-18) 20 MG/DL (7-18) Creatinine 1.62 MG/DL (0.60-1.30) Estimat Glomerular Filtration 45 ML/MIN (>89) 58 ML/MIN (>89) Rate Random Glucose 108 MG/DL (74-106) Calcium Level 8.3 MG/DL 8.4 MG/DL (8.5-10.1) (8.5-10.1) Albumin 2.6 GM/DL (3.4-5.0) Red Blood Count 3.84 MIL/MM3 (4.50-5.90) Hemoglobin 11.7 GM/DL (13.0-17.0) Hematocrit 35.0 % (39.0-51.0) Platelet Count 141 TH/MM3 (150-450) Monocytes (%) (Auto) 13.8 % (0.0-8.0) Potassium Level 3.4 MEQ/L (3.5-5.1) Imaging Last Impressions Abdomen MRI 10/25/16 0000 Signed Impressions: Service Date/Time: Tuesday, October 25, 2016 16:16 - CONCLUSION: Heterogeneous mass lower pole right kidney likely renal cell carcinoma. Large cyst in the left kidney. Solid organs are unremarkable. Alberto Augustin MD Renal Ultrasound 10/23/16 0000 Signed Impressions: Service Date/Time: Sunday, October 23, 2016 17:44 - CONCLUSION: Solid mass in the right kidney and further characterization with MRI examination with intravenous contrast is recommended. Rosa Pete MD PE at Discharge GENERAL: 56 yo male, more alert and oriented today, in bed appears in not acute distress SKIN: Pale. CARDIOVASCULAR: Regular rate and rhythm. RESPIRATORY: No accessory muscle use. Clear to auscultation. Breath sounds equal bilaterally. GASTROINTESTINAL: Abdomen soft, non-tender, nondistended. MUSCULOSKELETAL: Extremities without clubbing, cyanosis, or edema. No obvious deformities. NEUROLOGICAL: Awake and alert. Falling asleep easily. No obvious cranial nerve deficits. Motor grossly within normal limits. Normal speech. PSYCHIATRIC: Appropriate mood and affect; insight and judgment normal. Hospital Course 56 years old male- hisory of CVA with left hemiplegia, [place] resident sent to ER LINDA: with underlying chronic renal insufficiency=previously 1.62 on 12/22/15. likely acute from poor po intake. Improving. right renal mass w/ recommendation for MRI w/ contrast however in light of acute renal failure, will avoid contrast. U/a negative for UTI. Renal Mass: Renal US w/ right renal mass as above, images reviewed by me. MRI Abd/Pelvis with right kidney mass, discussed with the patient An MRI of the abdomen with contrast contrast. Review right upper kidney mass. Urology was consulted. Was seen by Dr. Brian Jack urology. Patient in the future will need a right lower pole nephrectomy and will need medical clearance preoperatively. This will be done on an outpatient basis. Creatinine is back to almost his baseline is 1.29 today. Monitor BMP. Hypernatremia change IVF to 1/2 NS- same rated creatinine trending down with IV hydration Consult Nephrology for further eval. Poor po intake /decrease appetite - contributing factor. Add megace CMP in am Thrombocytopenia: Platelets 114, previously 155 on 12/22/15. No active bleeding at this time. Will monitor, Seizure Disorder: S/P CVA left hemiplegia + dysarthria PT/OT/Speech therapy consult. continue on Depakote and Keppra. HTN: BP 150-160's. Resume home Metoprolol, Clonidine and Norvasc. Monitor BP. DNR: Code Status confirmed, DNR in chart. DVT Prophylaxis: Pharmacologic contraindication in light of thrombocytopenia and possible renal cell CA w/ high risk for bleed. Case management consulted for d/c planning as needed. Moderate protein calorie malnutrition. resolving. He was able to eat all his breakfast today. Decorating Instructor consult- calorie count- ? PEG candidate, however discussed with the patient he is refusing PEG tube. Check prealbumin. Continue Megace. Speech therapy consulted for swallow eval as well Physical deconditioning. Consult PT TEDs/SCDs DC plan to discharge to assisted facility. Follow her for partial nephrectomy as outpatient urology Dr. Torres. To follow-up with nephrology and PCP as outpatient. Pt Condition on Discharge: Stable Discharge Disposition: Discharge to SNF Discharge Time: > 30 minutes Discharge Instructions DIET: Follow Instructions for: Renal Failure Diet Speech Therapy-Diet Recommends: Regular Activities you can perform: Regular-No Restrictions Follow up Referrals: Nephrology - 11/03/16 with Leonel Joy MD PCP Follow-up - 2-3 Days Urology - 6 Weeks with Brian Jack DO New Medications: Megestrol Liq (Megestrol Liq) 40 Mg/Ml Susp 400 MG PO DAILY appetite enhancer Days 30 BOTTLE Sennosides-Docusate Sodium (Senna Plus 8.6-50 mg) 1 Tab Tab 1 TAB PO BID Constipation #60 TAB Continued Medications: Acetaminophen (Mapap) 325 Mg Tab 325 MG PO Q4HR PRN HEADACHE Ref 0 TAB Alprazolam (Alprazolam) 0.5 Mg Tab 0.5 MG PO Q6H PRN ANXIETY #15 Ref 0 TAB (This prescription has been renewed) Amlodipine (Amlodipine) 10 Mg Tab 10 MG PO DAILY HTN #30 Ref 0 TAB Aripiprazole (Abilify) 5 Mg Tablet 5 MG PO DAILY MDD Aspirin DR (Aspir-81) 81 Mg Tabdr 81 MG PO DAILY CVA Bismuth Subsalicylate Liq (Pepto-Bismol Liq) 262 Mg/15 Ml Susp 30 ML PO Q8HR Do not exceed 8 doses (240 mL or 16 tbsp) in 24 hours. PRN INDIGESTION OR UPSET STOMACH #1 Ref 0 BOTTLE Cholecalciferol (Vitamin D3) 1,000 Unit Tab 1000 UNITS PO DAILY Nutritional Supplement #1 Ref 0 BOTTLE Clonidine (Clonidine) 0.2 Mg Tab 0.2 MG PO TID HTN #60 Ref 0 TAB Dextromethorphan HBr-Quinidine (Nuedexta 20-10 mg) 1 Cap Cap 1 CAP PO BID BEHAVIORS #60 Ref 0 CAP Diphenhydramine HCl (Benadryl Allergy) 25 Mg Tablet 50 MG PO Q6HR PRN ALLERGIC RHINITIS Divalproex DR (Depakote DR) 500 Mg Tabdr 500 MG PO Q12HR Control Seizures #60 Ref 0 TAB Escitalopram (Lexapro) 20 Mg Tab 20 MG PO DAILY MDD #30 Ref 0 TAB Hydralazine HCl (Hydralazine HCl) 25 Mg Tablet 25 MG PO TID HTN #90 Ref 0 TAB Levetiracetam (Keppra) 750 Mg Tab 750 MG PO Q12HR Control Seizures #60 Ref 0 TAB Metoprolol Tartrate (Metoprolol Tartrate) 50 Mg Tab 50 MG PO BID HTN #60 Ref 0 TAB Oxycodone-Acetaminophen (Percocet) 5-325 mg Tab 1 TAB PO Q6H PRN PAIN #15 Ref 0 TAB (This prescription has been renewed) Tamsulosin (Tamsulosin) 0.4 Mg Cap 0.4 MG PO HS BPH #30 Ref 0 CAP Trazodone (Trazodone) 50 Mg Tab 50 MG PO HS Insomnia #30 Ref 0 TAB Zolpidem (Zolpidem) 10 Mg Tab 10 MG PO HS SLEEPING #15 Ref 0 TAB (This prescription has been renewed) Akosua Ozuna MD Oct 27, 2016 09:08
[2016-10-27] MEDS: ALPRAZolam 0.5 MG TAB PO PRN (10:18)
[2016-10-27 12:00] VITALS: BP 137/84; PULSE 62; RESP 20; TEMP 97.4; O2SAT 97
--- NOTE | 2016-10-27 12:33 | HHI.PR ---
Subjective Remarks eating much better appetite is back to normal. No nausea, vomiting, diarrhea or constipation. Has clear urine urine output as well. No flank pain or abdominal pain. Normal bowel movements Objective Vitals Vital Signs Date Time Temp Pulse Resp B/P Pulse Ox O2 Delivery O2 Flow Rate FiO2 10/27/16 08:00 97.7 64 20 164/96 98 10/26/16 23:58 96.8 80 18 140/80 94 10/26/16 20:08 99.0 83 17 142/84 94 10/26/16 19:38 20 10/26/16 16:00 97.9 72 19 135/93 96 I/O 10/26/16 10/26/16 10/26/16 10/27/16 10/27/16 10/27/16 07:00 15:00 23:00 07:00 15:00 23:00 Intake Total 1079 ml 1205 ml 480 ml 1180 ml Output Total 1100 ml 1000 ml 1500 ml Balance -21 ml 1205 ml -520 ml -320 ml Intake Oral 360 ml 480 ml 380 ml IV Total 719 ml 1205 ml 800 ml Output Urine Total 1000 ml 1000 ml 1500 ml Drainage Total 100 ml # Bowel Movements 1 Result Diagram: 10/26/16 0545 10/26/16 0545 Imaging Last Impressions Abdomen MRI 10/25/16 0000 Signed Impressions: Service Date/Time: Tuesday, October 25, 2016 16:16 - CONCLUSION: Heterogeneous mass lower pole right kidney likely renal cell carcinoma. Large cyst in the left kidney. Solid organs are unremarkable. Alberto Augustin MD Renal Ultrasound 10/23/16 0000 Signed Impressions: Service Date/Time: Sunday, October 23, 2016 17:44 - CONCLUSION: Solid mass in the right kidney and further characterization with MRI examination with intravenous contrast is recommended. Rosa Pete MD Objective Remarks GENERAL: 56 yo male, more alert and oriented today, in bed appears in not acute distress SKIN: Pale. CARDIOVASCULAR: Regular rate and rhythm. RESPIRATORY: No accessory muscle use. Clear to auscultation. Breath sounds equal bilaterally. GASTROINTESTINAL: Abdomen soft, non-tender, nondistended. MUSCULOSKELETAL: Extremities without clubbing, cyanosis, or edema. No obvious deformities. NEUROLOGICAL: Awake and alert. Falling asleep easily. No obvious cranial nerve deficits. Motor grossly within normal limits. Normal speech. PSYCHIATRIC: Appropriate mood and affect; insight and judgment normal. Procedures none A/P Problem List: (1) LINDA (acute kidney injury) ICD Code: N17.9 Status: Acute (2) Renal mass ICD Code: N28.89 Status: Acute (3) Thrombocytopenia ICD Code: D69.6 Status: Acute (4) Seizure disorder ICD Code: G40.909 Status: Acute (5) HTN (hypertension) ICD Code: I10 Status: Acute (6) DNR (do not resuscitate) ICD Code: Z66 Status: Chronic Assessment and Plan 56 years old male- hisory of CVA with left hemiplegia, [place] resident sent to ER LINDA: with underlying chronic renal insufficiency=previously 1.62 on 12/22/15. likely acute from poor po intake. Improving. right renal mass w/ recommendation for MRI w/ contrast however in light of acute renal failure, will avoid contrast. U/a negative for UTI. Renal Mass: Renal US w/ right renal mass as above, images reviewed by me. MRI Abd/Pelvis with right kidney mass, discussed with the patient An MRI of the abdomen with contrast contrast. Review right upper kidney mass. Urology was consulted. Was seen by Dr. Brian Jack urology. Patient in the future will need a right lower pole nephrectomy and will need medical clearance preoperatively. This will be done on an outpatient basis. Creatinine is back to almost his baseline is 1.29 today. Monitor BMP. Hypernatremia change IVF to 1/2 NS- same rated creatinine trending down with IV hydration Consult Nephrology for further eval. Poor po intake /decrease appetite - contributing factor. Add megace CMP in am Thrombocytopenia: Platelets 114, previously 155 on 12/22/15. No active bleeding at this time. Will monitor, Seizure Disorder: S/P CVA left hemiplegia + dysarthria PT/OT/Speech therapy consult. continue on Depakote and Keppra. HTN: BP 150-160's. Resume home Metoprolol, Clonidine and Norvasc. Monitor BP. DNR: Code Status confirmed, DNR in chart. DVT Prophylaxis: Pharmacologic contraindication in light of thrombocytopenia and possible renal cell CA w/ high risk for bleed. Case management consulted for d/c planning as needed. Moderate protein calorie malnutrition. resolving. He was able to eat all his breakfast today. Segmental Paver Installer consult- calorie count- ? PEG candidate, however discussed with the patient he is refusing PEG tube. Check prealbumin. Continue Megace. Speech therapy consulted for swallow eval as well Physical deconditioning. Consult PT TEDs/SCDs DC plan to discharge to intermediate facility. Follow her for partial nephrectomy as outpatient urology Dr. Torres. To follow-up with nephrology and PCP as outpatient. Akosua Ozuna MD Oct 27, 2016 12:33
[2016-10-27] MEDS ORDERED: ZOLP10TA3 PO (12:43)
== END 2016-10-27 15:27 | DRG 683 ==
LOC: NEPC 15:36 → NEDA 18:03 → N07B 20:57
PROVIDERS: ADMIT Hospitalist; ATTEND Hospitalist
DX: N17.9 Acute kidney failure, unspecified (principal); I69.354 Hemiplegia and hemiparesis following cerebral infarction affecting left non-dominant side; D69.6 Thrombocytopenia, unspecified; E87.0 Hyperosmolality and hypernatremia; E44.0 Moderate protein-calorie malnutrition; E86.0 Dehydration; D49.511 Neoplasm of unspecified behavior of right kidney; F32.9 Major depressive disorder, single episode, unspecified; F41.9 Anxiety disorder, unspecified; J44.9 Chronic obstructive pulmonary disease, unspecified; N40.0 Benign prostatic hyperplasia without lower urinary tract symptoms; F17.210 Nicotine dependence, cigarettes, uncomplicated; Z66 Do not resuscitate; G40.909 Epilepsy, unspecified, not intractable, without status epilepticus; N18.9 Chronic kidney disease, unspecified; I69.322 Dysarthria following cerebral infarction; G47.00 Insomnia, unspecified; I12.9 Hypertensive chronic kidney disease with stage 1 through stage 4 chronic kidney disease, or unspecified chronic kidney disease; Z79.82 Long term (current) use of aspirin; I25.2 Old myocardial infarction
CPT/HCPCS: 74183; 76775; 80048; 80053; 81001; 85025; 85610; 85730; 96360; A9579; J7030